=== PATIENT | female | born 1950 | race Two or more races ===

== ENCOUNTER 2018-12-11 19:33 | Emergency (ER) | payer MEDICARE, OTHER ==
[~2018-12-11] VITALS: Ht 162.6 cm; Wt 50.3 kg
--- NOTE | 2018-12-11 19:40 | NUR ---
[id number] FOUND UNSTEADY ON WHEELCHAIR. PER RA, ADMITS +ETOH. PT OPENS EYES TO VOICE, VERBAL RESPONSE INCOMPREHENSIVE. PT O2 SAT 83% ON ROOM AIR, PLACED ON 4L O2 TOLERATING WELL, O2 SAT 97%. PLACED ON MONITOR, WILL CONTINUE TO MONITOR.
[2018-12-11] MEDS ORDERED: IPRATROPIUM NEB FS 0.5 MG/2.5 ML AMPUL.NEB NEB ONE (20:30)
[2018-12-11] MEDS ORDERED: ALBUTEROL FS 2.5 MG/3 ML VIAL.NEB CONTNEB ONE (20:30)
[2018-12-11] MEDS ORDERED: predniSONE 20 MG TABLET PO ONE (20:30)
[2018-12-11] MEDS ORDERED: predniSONE 20 MG TABLET ONE (20:35)
[2018-12-11] MEDS ORDERED: IPRATROPIUM NEB FS 0.5 MG/2.5 ML AMPUL.NEB ONE (20:40)
[2018-12-11] MEDS ORDERED: ALBUTEROL FS 2.5 MG/0.5 ML VIAL.NEB ONE (20:40)
--- NOTE | 2018-12-11 20:40 | NUR ---
ATTEMPTED TO GIVE PT'S PO PREDNISONE, PT VERBALLY ABUSIVE AND EVENTUALLY TOOK PREDNISONE
--- NOTE | 2018-12-11 20:43 | NUR ---
PT REFUSING ALL CARE EXCEPT BREATHING TREATMENT AT THIS TIME
[2018-12-12 03:19] VITALS: BP 120/66
--- NOTE | 2018-12-12 03:56 | NUR ---
PT AMBULATORY WITH STEADY GAIT TO RESTROOM.
--- NOTE | 2018-12-12 04:10 | NUR ---
PT BECAME VERBALLY AGGRESSIVE WITH STAFF, CONTINUES TO REFUSE ALL SERVICES. PT REFUSING TO SIGN AMA PAPERWORK. UPSET BECAUSE HER LONGTERM IS LOCKED AT THIS TIME. TOLD PATIENT SHE CAN WAIT FOR LONGTERM TO OPEN IN THE WAITING ROOM. KS CONTINUED TO ESCALATE TAKING OFF PULSE OX CABLE AND THROWING IT AT STAFF. SECURITY THEN CALLED TO ESCORT PATIENT TO WAITING ROOM. [facility] NOTIFIED.
== END 2018-12-12 04:10 | disposition left against medical advice (07) ==
LOC: ER 19:35
DX: F10.129 Alcohol abuse with intoxication, unspecified (principal); R09.02 Hypoxemia; J44.1 Chronic obstructive pulmonary disease with (acute) exacerbation; E11.9 Type 2 diabetes mellitus without complications; Y90.9 Presence of alcohol in blood, level not specified
CPT/HCPCS: 93005; 94640; 99283; J7512

== ENCOUNTER 2019-08-10 22:38 | Inpatient (IN) | payer MEDICARE ==
[~2019-08-10] VITALS: Ht 157.5 cm; Wt 49.4 kg
[2019-08-10 23:20] VITALS: BP 149/93
--- NOTE | 2019-08-10 23:25 | NUR ---
RN NOTES RECEIVED PT. FROM [facility], DIRECT ADMIT, Rohit/MART[address] ST ON TELE MONITOR -111, PT IS SLIGHTLY WHEEZING, ADMISSION INSTRUCTION WAS RENDERED, CALL LIGHT WITHIN REACH, [id number], CONTINUE TO MONITOR
[2019-08-10 23:30] VITALS: BP 145/93
[2019-08-11] VITALS (7 sets, daily range): BP systolic 123–150; BP diastolic 83–100
[2019-08-11] MEDS ORDERED: QUET50TA PO (00:01)
[2019-08-11] MEDS ORDERED: SERT100T PO (00:01)
[2019-08-11] MEDS ORDERED: METF-440 PO (00:01)
[2019-08-11] MEDS ORDERED: BENA20TA9 PO (00:01)
[2019-08-11] MEDS ORDERED: PANT20TA2 PO (00:01)
[2019-08-11] MEDS ORDERED: IV NS 0.9% 1,000 ML BAG IV SCH (01:00)
[2019-08-11] MEDS: IV NS 0.9% 1,000 ML IV SCH ×2 (01:38→14:28)
[2019-08-11] MEDS ORDERED: ONDANSETRON HCL/PF 4 MG/2 ML VIAL IVP PRN (02:00)
[2019-08-11] MEDS ORDERED: ACETAMINOPHEN 325 MG TABLET PO PRN (02:00)
[2019-08-11] MEDS ORDERED: MAGNESIUM HYDROXIDE 30 ML UDC PO PRN (02:00)
[2019-08-11] MEDS ORDERED: MAG HYDROX/AL HYDROX/SIMETH 30 ML UDC PO PRN (02:00)
[2019-08-11] MEDS ORDERED: AZITHROMYCIN 500 MG VIAL ONE (02:32)
[2019-08-11] MEDS: AZITHROMYCIN 500 MG in IV D5W 250 ML IV SCH (02:44)
--- NOTE | 2019-08-11 02:45 | NUR ---
RN NOTES COMPLAINED OF TERRIBLE HEADACHE- NORCO 5/325 MG PO GIVEN ORDERED
[2019-08-11] MEDS ORDERED: CEFTRIAXONE 1 G VIAL ONE (02:47)
[2019-08-11] MEDS: HYDROCODONE/APAP 5/325MG 1 EACH TABLET PO PRN ×3 (02:49→20:48)
--- NOTE | 2019-08-11 02:50 | NUR ---
RN NOTES PT. IS WHEEZING, SPOKE TO DR. ZARATE AND GOT AN ORDERED OF BREATHING TREATMENT, ORDER NOTED AND CARRIED OUT
[2019-08-11] MEDS: ALBUTEROL FS 2.5 MG/3 ML VIAL.NEB NEB SCH ×4 (03:23→19:08)
[2019-08-11] MEDS: IPRATROPIUM NEB FS 0.5 MG/2.5 ML AMPUL.NEB NEB SCH ×4 (03:23→19:07)
[2019-08-11] MEDS: CEFTRIAXONE 1 G in IV D5W 50 ML IV SCH (03:46)
[2019-08-11 06:01] LABS: BASOPHILS % (AUTO) 0.2 % (0.0-2.0); HEMATOCRIT 38 % (33-45); HEMOGLOBIN 12.7 g/dL (11.5-14.8); LYMPHOCYTES # (AUTO) 0.7 /CMM (0.8-4.8); LYMPHOCYTES % (AUTO) 13.9 % (20.0-44.0); MEAN CORPUSCULAR HGB CONC 33 g/dl (31.0-36.0); MEAN CORPUSCULAR VOLUME 91 fL (82-100); MONOCYTES # (AUTO) 0.6 /CMM (0.1-1.30); NEUTROPHILS # (AUTO) 3.8 /CMM (1.8-8.9); NEUTROPHILS % (AUTO) 73.9 % (43.0-81.0); PLATELET COUNT (AUTO) 188 /CMM (150-450); RED BLOOD CELL COUNT(AUTO) 4.24 MIL/uL (4.0-5.2); WHITE BLOOD COUNT (AUTO) 5.1 K/uL (4.3-11.0)
[2019-08-11 06:11] LABS: CALCIUM, SERUM 8.2 mg/dL (8.5-10.1); CARBON DIOXIDE 30 mmol/L (21-32); CHLORIDE 101 mmol/L (98-107); CREATININE 0.7 mg/dL (0.6-1.3); GLUCOSE 252 mg/dL (74-106); POTASSIUM 4.2 mmol/L (3.5-5.1); SODIUM SERUM 137 mmol/L (136-145); UREA NITROGEN, BLOOD 19 mg/dL (7-18)
[2019-08-11 06:23] LABS: ALANINE AMINOTRANSFERASE 19 U/L (12-78); ALKALINE PHOSPHATASE 89 U/L (46-116); ASPARTATE AMINOTRANSFERASE 21 U/L (15-37); B-TYPE NATRIURETIC PEPTIDE 282 PG/ML (0-125); BILIRUBIN,TOTAL 0.2 mg/dL (0.2-1.0); MAGNESIUM 1.7 mg/dL (1.8-2.4); PHOSPHORUS 2.3 mg/dL (2.5-4.9); TOTAL PROTEIN, SERUM 6.7 g/dL (6.4-8.2)
[2019-08-11 06:26] LABS: CHOLESTEROL 191 mg/dL (<200); HDL CHOLESTEROL 101 mg/dL (40-60); LDL 79 mg/dL (0-99); THYROID STIMULATING HORMONE 0.293 uIU/mL (0.358-3.74); TRIGLYCERIDES 44 mg/dL (30-150)
--- NOTE | 2019-08-11 06:40 | NUR ---
RN NOTES AWAKE, MORNING CARE RENDERED, NOT IN DISTRESS, NO PAIN NOTED, MORNING CARE RENDERED, CALL LIGHT WITHIN REACH, [id number], PT. NEEDS ATTENDED
--- NOTE | 2019-08-11 07:25 | NUR ---
SUPERVISOR GRAPHITE OPENING NOTES RECEIVED PATIENT IN BED, AWAKE, A/O X3. PATIENT ON OXYGEN AT 2L/MIN BREATHING EVENLY WITH NO SIGNS OF SOB OR ANY DISTRESS. PATIENT COMPLAINING OF MILD HEADACHE AT THIS TIME. R WRIST SL GAUGE # 20 INTACT AND PATENT. NO SIGNS OF INFILTRATION NOTED AT THIS TIME. PATIENT IS ON EXTERNAL CARDIAC MONITORING WITH A CURRENT READING OF SR IN THE 90S. SAFETY PRECAUTIONS IN PLACE: BED IN LOW POSITION AND LOCKED, RAILS UP X2, CALL LIGHT WITHIN REACH. WILL CONTINUE TO MONITOR PATIENT.
[2019-08-11] MEDS ORDERED: ASPI-1152 PO (08:02)
[2019-08-11] MEDS ORDERED: ALBU18HF2 IH (08:02)
[2019-08-11] MEDS ORDERED: ATOR40TA PO (08:02)
[2019-08-11] MEDS: PANTOPRAZOLE 40 MG TABLET.DR PO SCH (08:09)
[2019-08-11 08:56] LABS: BILIRUBIN,DIRECT 0.1 mg/dL (0.0-0.2)
[2019-08-11] MEDS ORDERED: CLONIDINE HCL 0.1 MG TABLET PO PRN (09:00)
--- NOTE | 2019-08-11 09:21 | NUR ---
RN NOTES PT NOTED WITH ELEVATED BP OF 147/100, DR POLK ON UNIT AND MADE AWARE WITH ORDER TO GIVE CLONIDINE 0.1MG FOR NOW. WILL CONTINUE TO MONITOR.
--- NOTE | 2019-08-11 09:28 | NUR ---
RN NOTES RECEIVED CALL FROM RANGE EXAMINER AT [phone] REGARDING PATIENT CRITICAL LAB VALUE LACTIC ACID 2.4 DR. POLK MADE AWARE WITH ORDER TO CONTINUE PLAN OF CARE AT THIS TIME. WILL CONTINUE TO MONITOR.
[2019-08-11] MEDS ORDERED: DEXTROSE 50%-WATER 50 ML DISP.SYRIN IV PRN (09:30)
[2019-08-11] MEDS: Magnesium 1GM/D5W 100ML PREMIX 100 ML IV SCH ×2 (10:16→11:22)
[2019-08-11] MEDS: THEOPHYLLINE TAB 24HR 400 MG TAB.SR. PO SCH (10:30)
[2019-08-11] MEDS ORDERED: K PHOS NEUTRAL 250 MG TABLET PO ONE (11:00)
[2019-08-11] MEDS: NICOTINE PATCH (21MG) 21 MG PATCH.TD24 TD SCH (11:20)
[2019-08-11] MEDS: methylPREDNISolone SOD SUCC 40 MG/ML VIAL IV SCH ×2 (11:21→17:23)
[2019-08-11] MEDS: BLOOD SUGAR DIAGNOSTIC 1 EACH STRIP VI SCH ×3 (11:59→22:00)
[2019-08-11] MEDS: INSULIN REGULAR, HUMAN 100 UNIT/ML 3 ML VIAL SQ PRN ×2 (12:01→17:36)
--- NOTE | 2019-08-11 12:05 | NUR ---
RN NOTES THEOPHYLLINE 400MG TAB NOT AVAILABLE TODAY PER PHARMACY BUT WILL BE AVAILABLE TOMORROW TO GIVE TO PT. DR FITZGERALD MADE AWARE AND SAID IT'S OK. WILL CONTINUE TO MONITOR.
--- NOTE | 2019-08-11 18:39 | NUR ---
MS RN CLOSING NOTES PATIENT RESTING IN BED A/O x4. ABLE TO MAKE NEEDS KNOWN. PATIENT ON OXYGEN THERAPY 2L/MIN PER NASAL CANULA. BREATHING EVEN AND UNLABORED WITH NO SIGNS OF DISTRESS. NO SOB PRESENT AT THIS TIME. SLIGHT HEADACHE PERSISTED THROUGHOUT THE DAY. PRN PAIN MEDICATIONS ADMINISTERED PRESCRIBED BY MD. RIGHT WRIST SL INTACT AND PATENT WITH NO SIGNS OF INFILTRATION. ALL NEEDS WERE ATTENDED TO. SAFETY PRECAUTIONS IN PLACE; BED IN LOW POSITION AND LOCKED, RAILS UP X 2, CALL LIGHT WITHIN REACH. WILL ENDORSE TO INSTALLATIONS INSPECTOR NURSE.
--- NOTE | 2019-08-11 19:40 | NUR ---
MS RN NOTES RECEIVED ON BED A/O X4,BREATHING REGULAR,NOT IN ANY FORM OF DISTRESS,IVF NS AT 100ML/HR RATE INFUSING WELL ON RIGHT HAND VIA IV PUMP,SITE PATENT.ASSIST WITH ADL'S.CALL LIGHT IN REACH,NEEDS ANTICIPATED.
[2019-08-11] MEDS: MONTELUKAST SODIUM (10MG) 10 MG TABLET PO SCH (22:00)
--- NOTE | 2019-08-11 22:00 | NUR ---
MS RN NOTES ACCU-CHECK BLOOD SUGAR CHECK 206,COVERED WITH HUMULIN R 4 UNITS PER MODERATE SLIDING SCALE,GIVEN SQ ON LEFT DELTOID.
[2019-08-11] MEDS: *INSULIN REGULAR(HUMULIN R)HUM 100 UNIT/ML VIAL SQ PRN (22:09)
[2019-08-12] MEDS: ALBUTEROL FS 2.5 MG/3 ML VIAL.NEB NEB SCH ×4 (01:03→20:00)
[2019-08-12] MEDS: IPRATROPIUM NEB FS 0.5 MG/2.5 ML AMPUL.NEB NEB SCH ×4 (01:03→20:00)
[2019-08-12] MEDS: AZITHROMYCIN 500 MG in IV D5W 250 ML IV SCH (02:02)
[2019-08-12] MEDS: CEFTRIAXONE 1 G in IV D5W 50 ML IV SCH (03:02)
[2019-08-12] MEDS: IV NS 0.9% 1,000 ML IV SCH (03:06)
[2019-08-12 06:26] LABS: BASOPHILS % (AUTO) 0.1 % (0.0-2.0); HEMATOCRIT 39 % (33-45); HEMOGLOBIN 12.7 g/dL (11.5-14.8); LYMPHOCYTES % (AUTO) 13.1 % (20.0-44.0); MEAN CORPUSCULAR HGB CONC 33 g/dl (31.0-36.0); MEAN CORPUSCULAR VOLUME 92 fL (82-100); MONOCYTES # (AUTO) 0.6 /CMM (0.1-1.30); MONOCYTES % (AUTO) 8.1 % (2.0-12.0); NEUTROPHILS # (AUTO) 5.9 /CMM (1.8-8.9); NEUTROPHILS % (AUTO) 78.7 % (43.0-81.0); PLATELET COUNT (AUTO) 175 /CMM (150-450); RED BLOOD CELL COUNT(AUTO) 4.22 MIL/uL (4.0-5.2); WHITE BLOOD COUNT (AUTO) 7.4 K/uL (4.3-11.0)
[2019-08-12 06:58] LABS: CREATININE 0.7 mg/dL (0.6-1.3); MAGNESIUM 2.1 mg/dL (1.8-2.4); PHOSPHORUS 2.2 mg/dL (2.5-4.9)
--- NOTE | 2019-08-12 07:13 | NUR ---
MS RN NOTES FAIRLY RESTED.PAIN MANAGEMENT EFFECTIVE,IVF IN PROGRESS.IV ABX TOLERATED WELL.CALL LIGHT IN REACH,NEEDS ATTENDED.ENDORSED TO [facility]NISE [facility] FOR [facility].
[2019-08-12] MEDS: PANTOPRAZOLE 40 MG TABLET.DR PO SCH (07:29)
--- NOTE | 2019-08-12 07:50 | NUR ---
MS RN OPENING NOTES RECEIVED PATIENT IN BED, AWAKE, A/O X4. PATIENT ON OXYGEN AT 2L/MIN BREATHING EVENLY WITH NO SIGNS OF SOB OR ANY DISTRESS. NO COMPLAINS OF PAIN AT THIS TIME. R WRIST SL GAUGE # 20 INTACT AND PATENT. NO SIGNS OF INFILTRATION NOTED AT THE MOMENT. SAFETY PRECAUTIONS IN PLACE: BED IN LOW POSITION AND LOCKED, RAILS UP X2, CALL LIGHT WITHIN REACH. WILL CONTINUE TO MONITOR PATIENT.
[2019-08-12] MEDS: BLOOD SUGAR DIAGNOSTIC 1 EACH STRIP VI SCH ×4 (07:54→22:00)
[2019-08-12 08:00] VITALS: BP 141/80
[2019-08-12] MEDS: methylPREDNISolone SOD SUCC 40 MG/ML VIAL IV SCH ×3 (08:58→23:56)
[2019-08-12] MEDS: NICOTINE PATCH (21MG) 21 MG PATCH.TD24 TD SCH (08:58)
[2019-08-12 09:35] LABS: ABG BASE EXCESS 5.3 mmol/L; ABG OXYGEN SATURATION 94.4 % (92.0-98.5); ABG PCO2 50.8 mmHg (35.0-45.0); ABG PH 7.406 (7.350-7.450); ABG PO2 73.7 mmHg (75.0-100.0); COHb 0.4 % (0.5-1.5); MetHb 0.4 % (0.0-1.5); O2Hb 93.6 % (94.0-97.0); SITE, ABG Right Radial; VENT MODE, BG NC 2L
[2019-08-12] MEDS: IV NS 0.9% 1,000 ML IV PRN (10:06)
[2019-08-12] MEDS ORDERED: K PHOS NEUTRAL 250 MG TABLET PO ONE (11:00)
[2019-08-12] MEDS: HYDROCODONE/APAP 5/325MG 1 EACH TABLET PO PRN (11:04)
--- NOTE | 2019-08-12 11:06 | NUR ---
MS RN NOTES PATIENT STATED SHE IS HAVING A SEVERE HEAD ACHE (7 OUT OF 10) DUE TO COUGHING ALL THE TIME. SHE REQUESTED PAIN MEDICATION. PRN PAIN MEDICATION NORCO 5-325 PER MD ORDER ADMINISTERED AT 1104. WILL REASSESS PATIENT.
[2019-08-12] MEDS: INSULIN REGULAR, HUMAN 100 UNIT/ML 3 ML VIAL SQ PRN ×2 (12:14→17:37)
[2019-08-12] MEDS: THEOPHYLLINE TAB 24HR 400 MG TAB.SR. PO SCH (12:51)
--- NOTE | 2019-08-12 13:51 | NUR ---
RN NOTES PT COMPLAINED OF SORETHROAT. DR POLK MADE AWARE WITH ORDER TO GIVE CEPACOL LOZENGES Q6HRS PRN.
[2019-08-12] MEDS ORDERED: MENTHOL/CETYLPYRD (CEPACOL) 1 LOZ LOZENGE PO PRN (14:00)
[2019-08-12 16:28] VITALS: BP 139/87
--- NOTE | 2019-08-12 18:34 | NUR ---
MS RN CLOSING NOTES PATIENT RESTING IN BED A/O x 4. ABLE TO MAKE NEEDS KNOWN. PATIENT ON OXYGEN THERAPY 2LPM PER NASAL CANULA. BREATHING EVEN AND UNLABORED WITH NO SIGNS OF DISTRESS. NO SOB PRESENT AT THIS TIME. BREATHING TREATMENT RECEIVED THROUGHOUT THE DAY. LAC #20 SL INTACT AND PATENT WITH NO SIGNS OF INFILTRATION. ALL NEEDS WERE ATTENDED TO. SAFETY PRECAUTIONS IN PLACE; BED IN LOW POSITION AND LOCKED, RAILS UP X 2, CALL LIGHT WITHIN REACH. WILL ENDORSE TO LOCAL TELEPHONE OPERATOR NURSE.
--- NOTE | 2019-08-12 19:00 | NUR ---
MS/RN OPENING NOTES: PATIENT RECEIVED IN BED, AWAKE, A/O X4. IN STABLE CONDITION. PATIENT ON OXYGEN AT 2L/MIN BREATHING EVENLY WITH NO SIGNS OF SOB OR ANY DISTRESS. BREATHING TREATMENT EVERY 6 HRS. NO COMPLAINS OF PAIN AT THIS TIME. IV SITE AT THE LEFT AC SL GAUGE # 20 INTACT AND PATENT. NO SIGNS OF INFILTRATION NOTED AT THE MOMENT. SAFETY MEASURES ARE IN PLACE: BED IN LOW POSITION AND LOCKED, SIDE RAILS UP X2, CALL LIGHT WITHIN REACH. WILL CONTINUE TO MONITOR PATIENT ACCORDINGLY.
[2019-08-12 20:00] VITALS: BP 142/91
[2019-08-12 20:52] VITALS: BP 142/91
[2019-08-12] MEDS: MONTELUKAST SODIUM (10MG) 10 MG TABLET PO SCH (21:47)
[2019-08-12] MEDS: *INSULIN REGULAR(HUMULIN R)HUM 100 UNIT/ML VIAL SQ PRN (22:03)
[2019-08-13] MEDS: IPRATROPIUM NEB FS 0.5 MG/2.5 ML AMPUL.NEB NEB SCH ×3 (00:39→14:05)
[2019-08-13] MEDS: ALBUTEROL FS 2.5 MG/3 ML VIAL.NEB NEB SCH ×3 (00:39→14:05)
[2019-08-13] MEDS: HYDROCODONE/APAP 5/325MG 1 EACH TABLET PO PRN ×2 (01:46→12:33)
[2019-08-13] MEDS: IV NS 0.9% 1,000 ML IV PRN (01:46)
[2019-08-13] MEDS: AZITHROMYCIN 500 MG in IV D5W 250 ML IV SCH (01:46)
[2019-08-13] MEDS: CEFTRIAXONE 1 G in IV D5W 50 ML IV SCH (02:48)
[2019-08-13] MEDS: methylPREDNISolone SOD SUCC 40 MG/ML VIAL IV SCH ×2 (05:16→12:32)
--- NOTE | 2019-08-13 05:37 | NUR ---
MS/RN NOTES: PATIENT WILL BE TRANSFERRED TO MS 2 IN ROOM 203-1. REPORT GIVEN TO [facility]. ALL PATIENT CONCERNS PASSED ON TO KANDIS. PATIENT LEFT THE UNIT IN STABLE CONDITION.
--- NOTE | 2019-08-13 05:40 | NUR ---
MS RN OPENING NOTE RECEIVED PATIENT VIA BED. A/OX4. ON OXYGEN 2L/MIN VIA NASAL CANNULA. RESPIRATIONS ARE EVEN AND UNLABORED. NO S/S SOB NOTED. IN NO APPARENT DISTRESS. IV ACCESS IN LAC#20 RUNNING NS @100ML/HR. BED IS LOW AND LOCKED, SIDE RIALS UP X2, HOB ELEVATED IN HIGH FOWLERS. CALL LIGHT WITHIN REACH. MADE COMFORTABLE, MEDICATIONS PLACED IN CASSETTE, PATIENT ORIENTED TO ROOM. WILL CONTINUE TO MONITOR.,
[2019-08-13] MEDS: BLOOD SUGAR DIAGNOSTIC 1 EACH STRIP VI SCH ×2 (06:49→12:32)
[2019-08-13] MEDS: INSULIN REGULAR, HUMAN 100 UNIT/ML 3 ML VIAL SQ PRN (06:55)
--- NOTE | 2019-08-13 07:38 | NUR ---
MS RN CLOSING NOTE PATIENT IN BED. A/OX4. REMAINS ON OXYGEN 2L/MIN VIA NASAL CANNULA. RESPIRATIONS ARE EVEN AND UNLABORED. NO SOB NOTED. NO DISTRESS NOTED. IV ACCESS MAINTAINED IN LAC#20 RUNNING NS @100ML/HR. BED REMAINS LOW AND LOCKED, SIDE RIALS UP X2, HOB ELEVATED IN HIGH FOWLERS. CALL LIGHT WITHIN REACH. WILL ENDORSE TO NEXT SHIFT.
--- NOTE | 2019-08-13 07:56 | NUR ---
MS RN OPENING NOTE PATIENT IN BED RESTING COMFORTABLY. PATIENT IN NO ACUTE DISTRESS. NO SOB NOTED. PATIENT BREATHING IS EVEN AND UNLABORED. PATIENT BREATHING ON OXYGEN NC 2L. NO FACIAL GRIMACING NOTED. SAFETY PRECAUTIONS IN PLACE. BED ALARM IS ON. PATIENT BED IS LOCKED AND IN LOWEST POSITION. CALL LIGHT WITHIN REACH. WILL CONTINUE TO MONITOR.
[2019-08-13 08:00] VITALS: BP 119/75
[2019-08-13] MEDS: PANTOPRAZOLE 40 MG TABLET.DR PO SCH (08:12)
[2019-08-13] MEDS: NICOTINE PATCH (21MG) 21 MG PATCH.TD24 TD SCH (08:13)
[2019-08-13 08:15] VITALS: BP 107/65
[2019-08-13 09:34] LABS: BASOPHILS % (AUTO) 0.1 % (0.0-2.0); HEMATOCRIT 42 % (33-45); LYMPHOCYTES # (AUTO) 0.6 /CMM (0.8-4.8); LYMPHOCYTES % (AUTO) 7.2 % (20.0-44.0); MEAN CORPUSCULAR HGB CONC 33 g/dl (31.0-36.0); MEAN CORPUSCULAR VOLUME 91 fL (82-100); MONOCYTES # (AUTO) 0.1 /CMM (0.1-1.30); MONOCYTES % (AUTO) 1.6 % (2.0-12.0); NEUTROPHILS % (AUTO) 91.1 % (43.0-81.0); PLATELET COUNT (AUTO) 218 /CMM (150-450); RED BLOOD CELL COUNT(AUTO) 4.65 MIL/uL (4.0-5.2); WHITE BLOOD COUNT (AUTO) 7.6 K/uL (4.3-11.0)
[2019-08-13 09:41] LABS: CALCIUM, SERUM 9.1 mg/dL (8.5-10.1); CREATININE 0.7 mg/dL (0.6-1.3); PHOSPHORUS 2.4 mg/dL (2.5-4.9); POTASSIUM 3.8 mmol/L (3.5-5.1)
[2019-08-13] MEDS: THEOPHYLLINE TAB 24HR 400 MG TAB.SR. PO SCH (09:53)
--- NOTE | 2019-08-13 12:00 | NUR ---
MS RN NOTE SPOKE WITH DR. WYMAN AND ORDERS TO CONTINUE PREDNISONE, FLONASE, ALBUTEROL, AND SEROQUEL AT [facility]. CONTACTED DR. POLK AND INFORMED HIM OF DR. WYMAN RECOMMENDATIONS. PER DR. POLK WILL FOLLOW UP AND INPUT MEDICATIONS HIMSELF.
[2019-08-13] MEDS ORDERED: ALBU2SYR3 PO (12:20)
[2019-08-13] MEDS ORDERED: PRED50TA PO (12:20)
[2019-08-13] MEDS ORDERED: AZIT500T PO (12:20)
[2019-08-13] MEDS ORDERED: VARE1TAB PO (12:20)
[2019-08-13] MEDS ORDERED: IPRA12.9 INH (12:20)
[2019-08-13] MEDS ORDERED: GABA-532 PO (12:20)
[2019-08-13] MEDS ORDERED: ALBUTEROL SULFATE INH 18 GM HFA.AER.AD IH PRN (12:30)
[2019-08-13] MEDS ORDERED: ALBUTEROL FS 2.5 MG/0.5 ML VIAL.NEB NEB PRN (12:30)
[2019-08-13] MEDS: *INSULIN REGULAR(HUMULIN R)HUM 100 UNIT/ML VIAL SQ PRN (12:32)
--- NOTE | 2019-08-13 13:00 | NUR ---
MS RN NOTE PATIENT IS REFUSING TO HAVE SKIN ASSESSMENT. EDUCATED RISKS VS BENEFITS. PATIENT GOT AGITATED AND CONTINUED TO REFUSE.
--- NOTE | 2019-08-13 14:26 | NUR ---
MS OUTREACH TEAM MEMBER NOTE PATIENT MEDICALLY STABLE TO GO HOME. PATIENT BREATHING IS EVEN AND UNLABORED. PATIENT IN NO ACUTE DISTRESS. NO SOB NOTED. PATIENT REFUSED TO HAVE SKIN ASSESSMENT. EDUCATED RISKS VS BENEFITS. PATIENT GOT AGITATED AND CONTINUED TO REFUSE. DC INSTRUCTIONS PROVIDED. PATIENT VERBALIZED UNDERSTANDING. PATIENT STATED SHE HAS RED GLASSES. BUT PER BELONGINGS INVENTORY LIST THERE IS NO RED EYE GLASSES LISTED. PATIENT SIGNED BELONGINGS LIST AND HAS BELONGINGS LISTED WITH HER. PATIENT KEPT CLEAN, DRY AND COMFORTABLE THROUGHOUT SHIFT. PATIENT IV REMOVED. PATIENT NEEDS AND CONCERNS ADDRESSED. REPORT GIVEN TO [facility] TO CHEL GUIDRY. PATIENT GOING BY AMBULANCE TO [facility]. MD AWARE OF DISCHARGE.
[2019-08-13] MEDS ORDERED: ALBUTEROL SULFATE INH 18 GM HFA.AER.AD IH SCH (17:00)
[2019-08-13] MEDS ORDERED: METFORMIN 500 MG TABLET PO SCH (17:00)
[2019-08-13] MEDS ORDERED: ATORVASTATIN 40 MG TABLET PO SCH (18:00)
[2019-08-13] MEDS ORDERED: QUETIAPINE FUMARATE 25 MG TABLET PO SCH (18:00)
[2019-08-13] MEDS ORDERED: ALBUTEROL FS 2.5 MG/0.5 ML VIAL.NEB NEB SCH (19:30)
[2019-08-13] MEDS ORDERED: AZITHROMYCIN 250 MG TABLET PO SCH (21:00)
[2019-08-14] MEDS ORDERED: SERTRALINE HCL 50 MG TABLET PO SCH (09:00)
[2019-08-14] MEDS ORDERED: ASPIRIN EC 81 MG TABLET.DR PO SCH (09:00)
[2019-08-14] MEDS ORDERED: BENAZEPRIL HCL 20 MG TABLET PO SCH (09:00)
== END 2019-08-13 14:20 | disposition home or self-care (01) | DRG 193 ==
LOC: TELE 22:38 → MED 08-11 09:33 → MEDSG2 08-13 05:32
PROVIDERS: ADMIT Internal Medicine; ATTEND Internal Medicine
DX: J15.9 Unspecified bacterial pneumonia (principal); J96.01 Acute respiratory failure with hypoxia; G93.41 Metabolic encephalopathy; J44.1 Chronic obstructive pulmonary disease with (acute) exacerbation; J44.0 Chronic obstructive pulmonary disease with (acute) lower respiratory infection; E86.0 Dehydration; E11.649 Type 2 diabetes mellitus with hypoglycemia without coma; I10 Essential (primary) hypertension; F41.9 Anxiety disorder, unspecified; F32.9 Major depressive disorder, single episode, unspecified; F17.200 Nicotine dependence, unspecified, uncomplicated; Z79.82 Long term (current) use of aspirin; Z79.51 Long term (current) use of inhaled steroids; Z79.84 Long term (current) use of oral hypoglycemic drugs; Z79.899 Other long term (current) drug therapy; J31.0 Chronic rhinitis
CPT/HCPCS: 36415; 36600; 71045-TC; 80048-TC; 80053-TC; 80061-TC; 82248-TC; 82803-TC; 82962-TC; 83605-TC; 83735-TC; 83880; 84100-TC; 84443-TC; 84484-TC; 85025-TC; 87081-TC; 94799-TC; G0378; J0456; J0696; J1815; J2405; J2920; J3475; J7030; J7060